=== PATIENT | male | born 1970 | race Caucasian/White ===

== ENCOUNTER 2018-09-06 07:07 | Emergency (ER) | payer SELFPAY ==
[2018-09-06 07:42] LABS: Bilirubin Negative (Negative); Blood, Urine Small (Negative); Clarity TURBID (Clear); Glucose, Urine (Dipstick) >=1000 mg/dL (Negative); Leukocyte Large (Negative); Nitrite Negative (Negative); Protein, Urine (Dipstick) 30 mg/dL (Neg-Trace); Specific Gravity, Urine 1.014 (1.002-1.036); Urobilinogen 0.2 mg/dL (0.2-1.0); pH, Urine 6.5 (5.0-9.0)
[2018-09-06 07:45] LABS: Bacteria/HPF 1+ HPF (None Seen); Hyaline Casts/LPF 0-3 HYALINE CAST LPF (0-3 Hyaline); Pathc Cast-AUWi Flag 1.01 (0-2.49); Squamous Epithelial 0-3 HPF (0-3)
[2018-09-06 07:59] LABS: Yeast-All Forms None Seen HPF (None Seen)
[2018-09-06 08:05] LABS: #Eosinphils 0.2 thou/uL (0.0-0.7); #Monocytes 0.8 thou/uL (0.11-0.59); #Neutrophils 6.1 thou/uL (1.40-6.50); %Basophils 0.4 % (0.0-1.0); %Eosinophils 1.8 % (0.0-10.0); %Lymphocytes 21.8 % (21.0-51.0); %Monocytes 8.7 % (0.0-10.0); %Neutrophils 67.3 % (42.0-75.0); Hemoglobin 16.7 g/dL (14.0-18.0); Mean Corpuscular HGB CONC 32.8 g/dL (32.0-36.0); Mean Corpuscular Hemoglobin 31.5 pg (27.0-31.0); Mean Platelet Volume 8.3 fL (7.4-10.4); Platelet Count 171 thou/uL (130-400); RBC Distribution Width 12.9 % (11.5-14.5); Red Blood Cell (RBC) Count 5.29 mill/uL (4.70-6.10); White Blood Cell (WBC) Count 9.1 thou/uL (4.8-10.8)
[2018-09-06] MEDS ORDERED: cefTRIAXone\\ROCEPHIN 1 GM VIAL ONE (09:22)
[2018-09-06 10:11] LABS: ALT (SGPT) 25 U/L (8-55); AST (SGOT) 13 U/L (5-34); Albumin 3.9 g/dL (3.5-5.0); Alkaline Phosphatase 76 U/L (40-150); Anion Gap 12 mmol/L (10-20); BUN (Urea Nitrogen) 10 mg/dL (8.9-20.6); Bilirubin, Total 0.3 mg/dL (0.2-1.2); Calc. Creatinine Clearance 0 mL/min (70-130); Calcium 9.2 mg/dL (7.8-10.44); Carbon Dioxide 27 mmol/L (22-29); Chloride 105 mmol/L (98-107); Estimated GFR-MDRD Greater than 90; Globulin 2.8 g/dL (2.4-3.5); Glucose 206 mg/dL (70-105); Potassium 4.2 mmol/L (3.5-5.1); Protein, Total 6.7 g/dL (6.0-8.3); Sodium 140 mmol/L (136-145)
== END 2018-09-06 10:17 | disposition home or self-care (01) ==
LOC: ERS 07:07
DX: E11.65 Type 2 diabetes mellitus with hyperglycemia (principal); N39.0 Urinary tract infection, site not specified; R53.83 Other fatigue; E11.42 Type 2 diabetes mellitus with diabetic polyneuropathy; E11.39 Type 2 diabetes mellitus with other diabetic ophthalmic complication; E78.5 Hyperlipidemia, unspecified; F17.210 Nicotine dependence, cigarettes, uncomplicated; Z79.82 Long term (current) use of aspirin; Z79.84 Long term (current) use of oral hypoglycemic drugs
CPT/HCPCS: 36415; 36416; 80053; 81003; 81015; 84484; 85025; 87077; 87086; 87186; 93005; 96361; 96374; J0696

== ENCOUNTER 2019-01-14 09:33 | Emergency (ER) | payer SELFPAY ==
[2019-01-14 10:14] LABS: Bilirubin Negative (Negative); Blood, Urine Negative (Negative); Clarity CLEAR (Clear); Glucose, Urine (Dipstick) >=1000 mg/dL (Negative); Leukocyte Negative (Negative); Nitrite Negative (Negative); Protein, Urine (Dipstick) Negative (Neg-Trace); Urobilinogen 0.2 mg/dL (0.2-1.0)
[2019-01-14 10:37] LABS: #Eosinphils 0.2 thou/uL (0.0-0.7); #Lymphocytes 2.1 thou/uL (1.20-3.40); #Monocytes 0.8 thou/uL (0.11-0.59); %Basophils 0.1 % (0.0-1.0); %Eosinophils 3.3 % (0.0-10.0); %Lymphocytes 29.1 % (21.0-51.0); %Monocytes 10.9 % (0.0-10.0); %Neutrophils 56.7 % (42.0-75.0); Hemoglobin 15.4 g/dL (14.0-18.0); Mean Corpuscular HGB CONC 33.4 g/dL (32.0-36.0); Mean Corpuscular Hemoglobin 32.3 pg (27.0-31.0); Mean Corpuscular Volume 96.8 fL (78.0-98.0); Mean Platelet Volume 9.4 fL (7.4-10.4); Platelet Count 163 thou/uL (130-400); RBC Distribution Width 11.7 % (11.5-14.5); Red Blood Cell (RBC) Count 4.77 mill/uL (4.70-6.10); White Blood Cell (WBC) Count 7.1 thou/uL (4.8-10.8)
[2019-01-14 10:58] LABS: ALT (SGPT) 29 U/L (8-55); AST (SGOT) 14 U/L (5-34); Alkaline Phosphatase 80 U/L (40-150); Anion Gap 12 mmol/L (10-20); BUN (Urea Nitrogen) 13 mg/dL (8.9-20.6); Bilirubin, Total 0.4 mg/dL (0.2-1.2); Calc. Creatinine Clearance 0 mL/min (70-130); Calcium 9.4 mg/dL (7.8-10.44); Carbon Dioxide 26 mmol/L (22-29); Chloride 103 mmol/L (98-107); Estimated GFR-MDRD Greater than 90; Globulin 2.9 g/dL (2.4-3.5); Glucose 224 mg/dL (70-105); Lipase 30 U/L (8-78); Potassium 4.6 mmol/L (3.5-5.1); Protein, Total 6.9 g/dL (6.0-8.3); Sodium 136 mmol/L (136-145)
[2019-01-14] MEDS ORDERED: ISOVUE-370 76%-LOCM 1 ML ONE (11:43)
--- NOTE | 2019-01-14 13:00 | CT ---
CT Abdomen Pelvis W Con HISTORY: Left flank pain. History of kidney infection. Reports UTI type symptoms. COMPARISON: None. FINDINGS: The lung bases are clear. Partially calcified granuloma is seen in the left base. The liver shows fatty change, the spleen is within normal limits in size. The pancreas and gallbladde r regions appear unremarkable. Right and left adrenal glands are normal in appearance. Right and left kidneys are normal in size. Th ere is no obstruction. There are no renal calculi. There is no perinephric fat stranding. A retroaortic left renal vein is incidentally noted. No significant periaortic or mesenteric adenopathy. No bowel wall findings. CT of pelvis performed with contrast enhancement: The bladder is mildly distended. There is no eviden ce of adenopathy or mass. The appendix region appears unremarkable. Minimal arthritic changes of the spine seen. IMPRESSION: 1. No acute abnormalities abdomen or pelvis. 2. Fatty changes of the liver. 3. Mildly within the bladder.
== END 2019-01-14 14:50 | disposition home or self-care (01) ==
LOC: ERS 09:33
DX: R10.9 Unspecified abdominal pain (principal); E11.9 Type 2 diabetes mellitus without complications; F17.210 Nicotine dependence, cigarettes, uncomplicated
CPT/HCPCS: 36415; 74177; 80053; 81003; 83690; 85025; 87086; Q9966

== ENCOUNTER 2021-03-16 13:38 | Emergency (ER) | payer SELFPAY ==
[2021-03-16 19:58] LABS: SARS-CoV-2 PCR by NAA DETECTED (NotDetected)
== END 2021-03-16 14:25 | disposition home or self-care (01) ==
LOC: ERS 13:38
DX: U07.1 COVID-19 (principal); I10 Essential (primary) hypertension; E11.40 Type 2 diabetes mellitus with diabetic neuropathy, unspecified; E78.5 Hyperlipidemia, unspecified; F17.210 Nicotine dependence, cigarettes, uncomplicated
CPT/HCPCS: 99283; U0003; U0005

== ENCOUNTER 2021-04-06 09:40 | Emergency (ER) | payer SELFPAY ==
[2021-04-06] MEDS ORDERED: Ketorolac Tromethamine 30 MG/ML VIAL ONE (10:58)
== END 2021-04-06 11:28 | disposition home or self-care (01) ==
LOC: ERS 09:40
DX: M25.512 Pain in left shoulder (principal); Z79.899 Other long term (current) drug therapy; Z79.4 Long term (current) use of insulin; I10 Essential (primary) hypertension; E11.42 Type 2 diabetes mellitus with diabetic polyneuropathy; E78.5 Hyperlipidemia, unspecified; E78.00 Pure hypercholesterolemia, unspecified; F17.210 Nicotine dependence, cigarettes, uncomplicated
CPT/HCPCS: 93005; 96372; J1885

== ENCOUNTER 2021-04-10 11:25 | Inpatient (IN) | payer SELFPAY ==
[~2021-04-10 11:25] MED LIST: Heparin 1,000 UNITS/ML VIAL ONE
[2021-04-10] MEDS ORDERED: Morphine 4 MG/ML VIAL ONE ×2 (12:21→15:49)
[2021-04-10 15:20] LABS: ALT (SGPT) 15 U/L (8-55); AST (SGOT) 18 U/L (5-34); Albumin 3.3 g/dL (3.5-5.0); Alkaline Phosphatase 100 U/L (40-110); Anion Gap 15 mmol/L (10-20); BUN (Urea Nitrogen) 17 mg/dL (8.9-20.6); Bilirubin, Total 0.4 mg/dL (0.2-1.2); Calc. Creatinine Clearance 0 mL/min (70-130); Calcium 9.8 mg/dL (7.8-10.44); Carbon Dioxide 26 mmol/L (22-29); Chloride 99 mmol/L (98-107); Globulin 4.1 g/dL (2.4-3.5); Glucose 347 mg/dL (70-105); Potassium 4.5 mmol/L (3.5-5.1); Protein, Total 7.4 g/dL (6.0-8.3); Sodium 135 mmol/L (136-145)
[2021-04-10 15:21] LABS: #Eosinphils 0.1 thou/uL (0.0-0.7); #Lymphocytes 1.6 thou/uL (1.20-3.40); #Monocytes 1.3 thou/uL (0.11-0.59); %Basophils 0.1 % (0.0-1.0); %Eosinophils 0.6 % (0.0-10.0); %Lymphocytes 13.7 % (21.0-51.0); %Monocytes 10.9 % (0.0-10.0); %Neutrophils 74.7 % (42.0-75.0); Hemoglobin 15.1 g/dL (14.0-18.0); Mean Corpuscular HGB CONC 32.6 g/dL (32.0-36.0); Mean Corpuscular Hemoglobin 31.6 pg (27.0-31.0); Mean Corpuscular Volume 96.9 fL (78.0-98.0); Platelet Count 191 thou/uL (130-400); Red Blood Cell (RBC) Count 4.78 mill/uL (4.70-6.10)
[2021-04-10] MEDS ORDERED: Cefepime 2 GM VIAL ONE (15:27)
[2021-04-10 16:17] LABS: #Eosinphils 0.1 thou/uL (0.0-0.7); #Lymphocytes 1.2 thou/uL (1.20-3.40); #Monocytes 1.6 thou/uL (0.11-0.59); #Neutrophils 10.4 thou/uL (1.40-6.50); %Basophils 0.2 % (0.0-1.0); %Eosinophils 0.7 % (0.0-10.0); %Monocytes 12.1 % (0.0-10.0); Hemoglobin 15.3 g/dL (14.0-18.0); Mean Corpuscular HGB CONC 31.7 g/dL (32.0-36.0); Mean Corpuscular Hemoglobin 30.8 pg (27.0-31.0); Mean Corpuscular Volume 97.4 fL (78.0-98.0); Mean Platelet Volume 9.4 fL (7.4-10.4); Platelet Count 201 thou/uL (130-400); RBC Distribution Width 11.9 % (11.5-14.5); Red Blood Cell (RBC) Count 4.97 mill/uL (4.70-6.10); White Blood Cell (WBC) Count 13.3 thou/uL (4.8-10.8)
[2021-04-10] MEDS ORDERED: Ondansetron ODT 4 MG TAB PO PRN (16:30)
[2021-04-10] MEDS ORDERED: Acetaminophen 650 MG Suppository PR PRN (16:30)
[2021-04-10] MEDS ORDERED: Ondansetron PF 4 MG/2 ML Vial IVP PRN (16:30)
[2021-04-10] MEDS ORDERED: Enoxaparin Sodium 40 MG/0.4 ML SYRINGE SC SCH (16:30)
[2021-04-10 16:42] LABS: ALT (SGPT) 17 U/L (8-55); AST (SGOT) 19 U/L (5-34); Albumin 3.5 g/dL (3.5-5.0); Alkaline Phosphatase 96 U/L (40-110); Anion Gap 16 mmol/L (10-20); BUN (Urea Nitrogen) 16 mg/dL (8.9-20.6); Bilirubin, Total 0.5 mg/dL (0.2-1.2); Calc. Creatinine Clearance 0 mL/min (70-130); Calcium 9.1 mg/dL (7.8-10.44); Carbon Dioxide 24 mmol/L (22-29); Chloride 101 mmol/L (98-107); Globulin 3.4 g/dL (2.4-3.5); Glucose 269 mg/dL (70-105); Potassium 4.7 mmol/L (3.5-5.1); Protein, Total 6.9 g/dL (6.0-8.3); Sodium 136 mmol/L (136-145)
[2021-04-10] MEDS ORDERED: Insulin Regular 300 UNITS/3 ML VIAL SC PRN (16:43)
[2021-04-10] MEDS ORDERED: Dextrose 50% Abboject 50 ML SYRINGE SLOW IVP PRN (16:43)
[2021-04-10] MEDS ORDERED: Dextrose 5% in Water 1,000 ML IV PRN (16:43)
[2021-04-10] MEDS ORDERED: VANCOMYCIN 2 GRAM/400 ML BAG 2 GM in Premix Bag 1 BAG IVPB SCH (17:30)
[2021-04-10] MEDS: HYDROcodone/Acetaminophen 5/325 mg Tablet PO PRN ×2 (18:14→22:30)
[2021-04-10] MEDS ORDERED: cefTRIAXone\\ROCEPHIN 1 GM in Sodium Chloride 0.9% 100 ML IVPB SCH (20:00)
[2021-04-10] MEDS: Acetaminophen 325 MG TAB PO PRN (21:07)
[2021-04-10 21:18] VITALS: BMI 34.2
[2021-04-10] MEDS ORDERED: Lisinopril 5 MG TAB PO SCH (22:30)
[2021-04-10] MEDS ORDERED: Lantus 1000 UNITS/10 ML VIAL SC SCH (22:30)
[2021-04-11] MEDS: HYDROcodone/Acetaminophen 5/325 mg Tablet PO PRN ×4 (05:10→20:52)
[2021-04-11] MEDS: Insulin Regular 300 UNITS/3 ML VIAL SC PRN ×3 (05:11→17:19)
[2021-04-11 06:51] LABS: #Eosinphils 0.1 thou/uL (0.0-0.7); #Lymphocytes 1.5 thou/uL (1.20-3.40); #Monocytes 1.7 thou/uL (0.11-0.59); #Neutrophils 10.1 thou/uL (1.40-6.50); %Eosinophils 0.7 % (0.0-10.0); %Monocytes 12.6 % (0.0-10.0); %Neutrophils 75.7 % (42.0-75.0); Hemoglobin 13.3 g/dL (14.0-18.0); Mean Corpuscular HGB CONC 29.2 g/dL (32.0-36.0); Mean Corpuscular Hemoglobin 28.5 pg (27.0-31.0); Mean Corpuscular Volume 97.7 fL (78.0-98.0); Mean Platelet Volume 9.2 fL (7.4-10.4); Platelet Count 205 thou/uL (130-400); RBC Distribution Width 11.8 % (11.5-14.5); Red Blood Cell (RBC) Count 4.67 mill/uL (4.70-6.10); White Blood Cell (WBC) Count 13.3 thou/uL (4.8-10.8)
[2021-04-11 07:10] LABS: Anion Gap 13 mmol/L (10-20); BUN (Urea Nitrogen) 12 mg/dL (8.9-20.6); Calc. Creatinine Clearance 245 mL/min (70-130); Calcium 8.5 mg/dL (7.8-10.44); Carbon Dioxide 26 mmol/L (22-29); Chloride 100 mmol/L (98-107); Glucose 247 mg/dL (70-105); Potassium 4.4 mmol/L (3.5-5.1); Sodium 135 mmol/L (136-145)
[2021-04-11] MEDS ORDERED: Naproxen 500 MG TAB PO SCH (09:00)
[2021-04-11] MEDS: Enoxaparin Sodium 40 MG/0.4 ML SYRINGE SC SCH (09:06)
[2021-04-11] MEDS: Lisinopril 5 MG TAB PO SCH (09:07)
[2021-04-11] MEDS: Lantus 1000 UNITS/10 ML VIAL SC SCH ×2 (09:08→20:53)
[2021-04-11] MEDS ORDERED: Polyethylene Glycol 3350 17 GM Packet PO PRN (11:22)
[2021-04-11] MEDS ORDERED: Piperacillin/Tazobactam 3.375 GM in Sodium Chloride 0.9% 100 ML IVPB SCH ×2 (11:30→11:45)
[2021-04-11] MEDS: Vancomycin 1.5 GRAM/300 ML BAG 1.5 GM in Premix Bag 1 BAG IVPB SCH (13:26)
[2021-04-11] MEDS ORDERED: metFORMIN 850 MG TAB PO SCH ×2 (15:00→20:45)
[2021-04-11] MEDS ORDERED: Dextrose 50% Abboject 50 ML SYRINGE SLOW IVP PRN ×2 (16:31→21:00)
[2021-04-11] MEDS ORDERED: Dextrose 5% in Water 1,000 ML IV PRN ×2 (16:31→21:00)
[2021-04-11] MEDS: Piperacillin/Tazobactam 3.375 GM in Sodium Chloride 0.9% 100 ML IVPB SCH (17:20)
[2021-04-11] MEDS: Senokot S 8.6-50 MG TAB PO SCH (20:54)
[2021-04-11] MEDS ORDERED: HumaLOG 300 UNITS/3 ML VIAL SC PRN (21:00)
[2021-04-11] MEDS: HumaLOG 300 UNITS/3 ML VIAL SC PRN (21:39)
[2021-04-11] MEDS: Morphine 2 MG/ML VIAL SLOW IVP PRN (21:42)
[2021-04-12] MEDS: HYDROcodone/Acetaminophen 5/325 mg Tablet PO PRN ×5 (00:43→22:58)
[2021-04-12] MEDS: Vancomycin 1.5 GRAM/300 ML BAG 1.5 GM in Premix Bag 1 BAG IVPB SCH ×2 (00:43→14:48)
[2021-04-12] MEDS: Piperacillin/Tazobactam 3.375 GM in Sodium Chloride 0.9% 100 ML IVPB SCH ×3 (00:44→18:45)
[2021-04-12] MEDS: Morphine 2 MG/ML VIAL SLOW IVP PRN (03:30)
[2021-04-12] MEDS: Insulin Regular 300 UNITS/3 ML VIAL SC PRN ×2 (05:29→17:56)
[2021-04-12 07:24] LABS: #Eosinphils 0.2 thou/uL (0.0-0.7); #Lymphocytes 1.4 thou/uL (1.20-3.40); #Monocytes 1.3 thou/uL (0.11-0.59); %Basophils 0.3 % (0.0-1.0); %Eosinophils 1.3 % (0.0-10.0); %Lymphocytes 11.5 % (21.0-51.0); %Monocytes 11.3 % (0.0-10.0); %Neutrophils 75.7 % (42.0-75.0); Hemoglobin 13.2 g/dL (14.0-18.0); Mean Corpuscular HGB CONC 31.5 g/dL (32.0-36.0); Mean Corpuscular Hemoglobin 30.8 pg (27.0-31.0); Mean Corpuscular Volume 97.8 fL (78.0-98.0); Platelet Count 209 thou/uL (130-400); RBC Distribution Width 11.8 % (11.5-14.5); Red Blood Cell (RBC) Count 4.28 mill/uL (4.70-6.10); White Blood Cell (WBC) Count 11.8 thou/uL (4.8-10.8)
[2021-04-12 07:28] LABS: Hemoglobin A1c 11.7 % (4.0-6.0)
[2021-04-12 07:38] LABS: Anion Gap 11 mmol/L (10-20); BUN (Urea Nitrogen) 10 mg/dL (8.9-20.6); Calc. Creatinine Clearance 238 mL/min (70-130); Calcium 8.1 mg/dL (7.8-10.44); Carbon Dioxide 28 mmol/L (22-29); Chloride 98 mmol/L (98-107); Glucose 261 mg/dL (70-105); Potassium 4.3 mmol/L (3.5-5.1); Sodium 133 mmol/L (136-145)
[2021-04-12] MEDS: glipiZIDE 10 MG TAB PO SCH (08:12)
[2021-04-12] MEDS: Senokot S 8.6-50 MG TAB PO SCH ×2 (08:12→20:29)
[2021-04-12] MEDS: Lisinopril 5 MG TAB PO SCH (08:12)
[2021-04-12] MEDS: Enoxaparin Sodium 40 MG/0.4 ML SYRINGE SC SCH (08:13)
[2021-04-12] MEDS: Lantus 1000 UNITS/10 ML VIAL SC SCH ×2 (08:15→20:29)
[2021-04-12] MEDS: metFORMIN 850 MG TAB PO SCH ×3 (08:16→18:44)
[2021-04-12] MEDS ORDERED: Iopamidol-370 76% 500 ML 1 ML ONE (09:31)
[2021-04-12] MEDS ORDERED: Ketorolac Tromethamine 30 MG/ML VIAL IVP SCH (10:30)
[2021-04-12] MEDS ORDERED: Vancomycin 1.5 GRAM/300 ML BAG 1.5 GM in Premix Bag 1 BAG IVPB SCH (14:00)
[2021-04-12] MEDS: Clindamycin/D5W 900 MG in Premix Bag 1 BAG IVPB SCH (17:37)
[2021-04-12] MEDS: Acetaminophen 325 MG TAB PO PRN (20:28)
[2021-04-12] MEDS: HumaLOG 300 UNITS/3 ML VIAL SC PRN (20:32)
[2021-04-13] MEDS: Clindamycin/D5W 900 MG in Premix Bag 1 BAG IVPB SCH ×3 (01:24→16:10)
[2021-04-13] MEDS: Piperacillin/Tazobactam 3.375 GM in Sodium Chloride 0.9% 100 ML IVPB SCH ×3 (01:24→16:10)
[2021-04-13] MEDS: Morphine 2 MG/ML VIAL SLOW IVP PRN ×3 (01:26→23:08)
[2021-04-13] MEDS: Insulin Regular 300 UNITS/3 ML VIAL SC PRN ×3 (05:19→16:09)
[2021-04-13] MEDS: HYDROcodone/Acetaminophen 5/325 mg Tablet PO PRN ×3 (05:19→21:32)
[2021-04-13 06:58] LABS: #Eosinphils 0.1 thou/uL (0.0-0.7); #Lymphocytes 1.2 thou/uL (1.20-3.40); #Monocytes 1.1 thou/uL (0.11-0.59); #Neutrophils 9.3 thou/uL (1.40-6.50); %Basophils 0.1 % (0.0-1.0); %Eosinophils 1.2 % (0.0-10.0); %Lymphocytes 10.4 % (21.0-51.0); %Monocytes 9.5 % (0.0-10.0); %Neutrophils 78.7 % (42.0-75.0); Hemoglobin 13.6 g/dL (14.0-18.0); Mean Corpuscular HGB CONC 30.9 g/dL (32.0-36.0); Mean Corpuscular Hemoglobin 30.3 pg (27.0-31.0); Mean Corpuscular Volume 98.2 fL (78.0-98.0); Mean Platelet Volume 9.4 fL (7.4-10.4); Platelet Count 208 thou/uL (130-400); RBC Distribution Width 11.9 % (11.5-14.5); Red Blood Cell (RBC) Count 4.47 mill/uL (4.70-6.10); White Blood Cell (WBC) Count 11.8 thou/uL (4.8-10.8)
[2021-04-13 07:10] LABS: Anion Gap 12 mmol/L (10-20); BUN (Urea Nitrogen) 12 mg/dL (8.9-20.6); Calc. Creatinine Clearance 234 mL/min (70-130); Calcium 8.3 mg/dL (7.8-10.44); Carbon Dioxide 28 mmol/L (22-29); Chloride 100 mmol/L (98-107); Glucose 309 mg/dL (70-105); Potassium 4.5 mmol/L (3.5-5.1); Sodium 135 mmol/L (136-145)
[2021-04-13] MEDS: Lisinopril 5 MG TAB PO SCH (08:43)
[2021-04-13] MEDS: metFORMIN 850 MG TAB PO SCH ×3 (08:43→16:08)
[2021-04-13] MEDS: Senokot S 8.6-50 MG TAB PO SCH ×2 (08:43→21:33)
[2021-04-13] MEDS: glipiZIDE 10 MG TAB PO SCH (08:43)
[2021-04-13] MEDS: Lantus 1000 UNITS/10 ML VIAL SC SCH ×2 (08:44→21:33)
[2021-04-13] MEDS: Enoxaparin Sodium 40 MG/0.4 ML SYRINGE SC SCH (08:44)
[2021-04-13] MEDS ORDERED: Dextrose 5% in Water 1,000 ML IV PRN (10:21)
[2021-04-13] MEDS ORDERED: Dextrose 50% Abboject 50 ML SYRINGE SLOW IVP PRN (10:21)
[2021-04-13] MEDS ORDERED: Lidocaine 1% (PF) 30 ML VIAL ONE (13:19)
[2021-04-13] MEDS ORDERED: Furosemide 100 MG/10 ML VIAL SLOW IVP SCH (16:15)
[2021-04-14] MEDS: Clindamycin/D5W 900 MG in Premix Bag 1 BAG IVPB SCH ×3 (00:36→17:07)
[2021-04-14] MEDS: Piperacillin/Tazobactam 3.375 GM in Sodium Chloride 0.9% 100 ML IVPB SCH ×3 (00:39→17:07)
[2021-04-14] MEDS: HYDROcodone/Acetaminophen 5/325 mg Tablet PO PRN (03:11)
[2021-04-14 06:55] LABS: #Eosinphils 0.2 thou/uL (0.0-0.7); #Lymphocytes 1.5 thou/uL (1.20-3.40); #Monocytes 1.6 thou/uL (0.11-0.59); #Neutrophils 11.1 thou/uL (1.40-6.50); %Eosinophils 1.2 % (0.0-10.0); %Lymphocytes 10.7 % (21.0-51.0); %Neutrophils 77.1 % (42.0-75.0); Hemoglobin 13.9 g/dL (14.0-18.0); Mean Corpuscular HGB CONC 31.9 g/dL (32.0-36.0); Mean Corpuscular Hemoglobin 31.2 pg (27.0-31.0); Mean Corpuscular Volume 97.8 fL (78.0-98.0); Mean Platelet Volume 8.7 fL (7.4-10.4); Platelet Count 271 thou/uL (130-400); RBC Distribution Width 11.8 % (11.5-14.5); Red Blood Cell (RBC) Count 4.46 mill/uL (4.70-6.10); White Blood Cell (WBC) Count 14.4 thou/uL (4.8-10.8)
[2021-04-14 07:15] LABS: Anion Gap 14 mmol/L (10-20); BUN (Urea Nitrogen) 11 mg/dL (8.9-20.6); Calc. Creatinine Clearance 221 mL/min (70-130); Calcium 8.7 mg/dL (7.8-10.44); Carbon Dioxide 30 mmol/L (22-29); Chloride 97 mmol/L (98-107); Glucose 273 mg/dL (70-105); Potassium 4.8 mmol/L (3.5-5.1); Sodium 136 mmol/L (136-145)
[2021-04-14] MEDS ORDERED: Penicillin G Potassium 5 MILL.UNITS in Sodium Chloride 0.9% 100 ML IVPB SCH (08:00)
[2021-04-14] MEDS: metFORMIN 850 MG TAB PO SCH ×3 (08:59→17:08)
[2021-04-14] MEDS: Senokot S 8.6-50 MG TAB PO SCH ×2 (08:59→21:10)
[2021-04-14] MEDS: Lisinopril 5 MG TAB PO SCH (08:59)
[2021-04-14] MEDS: glipiZIDE 10 MG TAB PO SCH (08:59)
[2021-04-14] MEDS: HYDROcodone/Acetaminophen 10/325 mg Tablet PO PRN ×3 (09:00→20:31)
[2021-04-14] MEDS: Lantus 1000 UNITS/10 ML VIAL SC SCH ×2 (09:01→20:37)
[2021-04-14] MEDS: Enoxaparin Sodium 40 MG/0.4 ML SYRINGE SC SCH (10:07)
[2021-04-14] MEDS: Insulin Regular 300 UNITS/3 ML VIAL SC PRN ×2 (11:22→17:08)
[2021-04-14] MEDS: Penicillin G Potassium 5 MILL.UNITS in Sodium Chloride 0.9% 100 ML IVPB SCH ×4 (15:42→23:24)
[2021-04-14] MEDS: Morphine 2 MG/ML VIAL SLOW IVP PRN (22:52)
[2021-04-15] MEDS: Clindamycin/D5W 900 MG in Premix Bag 1 BAG IVPB SCH ×2 (00:26→08:37)
[2021-04-15] MEDS: Penicillin G Potassium 5 MILL.UNITS in Sodium Chloride 0.9% 100 ML IVPB SCH ×6 (01:43→23:27)
[2021-04-15] MEDS: Piperacillin/Tazobactam 3.375 GM in Sodium Chloride 0.9% 100 ML IVPB SCH ×3 (02:45→17:27)
[2021-04-15] MEDS: Insulin Regular 300 UNITS/3 ML VIAL SC PRN ×3 (05:30→17:26)
[2021-04-15 07:15] LABS: #Eosinphils 0.1 thou/uL (0.0-0.7); #Lymphocytes 1.4 thou/uL (1.20-3.40); #Monocytes 1.2 thou/uL (0.11-0.59); #Neutrophils 10.5 thou/uL (1.40-6.50); %Eosinophils 0.8 % (0.0-10.0); %Lymphocytes 10.9 % (21.0-51.0); %Monocytes 8.7 % (0.0-10.0); %Neutrophils 79.6 % (42.0-75.0); Hemoglobin 13.1 g/dL (14.0-18.0); Mean Corpuscular HGB CONC 31.7 g/dL (32.0-36.0); Mean Corpuscular Hemoglobin 30.7 pg (27.0-31.0); Mean Corpuscular Volume 96.9 fL (78.0-98.0); Mean Platelet Volume 8.4 fL (7.4-10.4); Platelet Count 282 thou/uL (130-400); RBC Distribution Width 11.9 % (11.5-14.5); Red Blood Cell (RBC) Count 4.26 mill/uL (4.70-6.10); White Blood Cell (WBC) Count 13.2 thou/uL (4.8-10.8)
[2021-04-15] MEDS: HYDROcodone/Acetaminophen 10/325 mg Tablet PO PRN ×3 (07:18→23:25)
[2021-04-15 07:34] LABS: Anion Gap 14 mmol/L (10-20); BUN (Urea Nitrogen) 9 mg/dL (8.9-20.6); Calc. Creatinine Clearance 276 mL/min (70-130); Calcium 8.2 mg/dL (7.8-10.44); Carbon Dioxide 26 mmol/L (22-29); Chloride 100 mmol/L (98-107); Glucose 237 mg/dL (70-105); Potassium 4.6 mmol/L (3.5-5.1); Sodium 135 mmol/L (136-145)
[2021-04-15] MEDS: glipiZIDE 10 MG TAB PO SCH (08:34)
[2021-04-15] MEDS: Lisinopril 5 MG TAB PO SCH (08:34)
[2021-04-15] MEDS: Senokot S 8.6-50 MG TAB PO SCH ×2 (08:34→20:21)
[2021-04-15] MEDS: metFORMIN 850 MG TAB PO SCH ×3 (08:36→17:21)
[2021-04-15] MEDS: Lantus 1000 UNITS/10 ML VIAL SC SCH ×2 (08:38→20:21)
[2021-04-15] MEDS: Enoxaparin Sodium 40 MG/0.4 ML SYRINGE SC SCH (08:38)
[2021-04-15] MEDS ORDERED: Iopamidol-370 76% 500 ML 1 ML ONE (09:39)
[2021-04-15] MEDS: Morphine 2 MG/ML VIAL SLOW IVP PRN ×2 (13:56→20:21)
[2021-04-16] MEDS: Piperacillin/Tazobactam 3.375 GM in Sodium Chloride 0.9% 100 ML IVPB SCH ×2 (01:14→08:22)
[2021-04-16] MEDS: Penicillin G Potassium 5 MILL.UNITS in Sodium Chloride 0.9% 100 ML IVPB SCH ×2 (04:24→08:17)
[2021-04-16] MEDS: HYDROcodone/Acetaminophen 10/325 mg Tablet PO PRN (04:24)
[2021-04-16] MEDS: Morphine 2 MG/ML VIAL SLOW IVP PRN (04:25)
[2021-04-16] MEDS: metFORMIN 850 MG TAB PO SCH ×3 (07:57→17:00)
[2021-04-16] MEDS: Lantus 1000 UNITS/10 ML VIAL SC SCH ×2 (07:58→20:09)
[2021-04-16] MEDS: Senokot S 8.6-50 MG TAB PO SCH ×2 (07:58→20:09)
[2021-04-16] MEDS: Enoxaparin Sodium 40 MG/0.4 ML SYRINGE SC SCH (07:58)
[2021-04-16] MEDS: glipiZIDE 10 MG TAB PO SCH (07:58)
[2021-04-16] MEDS: Lisinopril 5 MG TAB PO SCH (08:16)
[2021-04-16] MEDS ORDERED: Vancomycin HCl 1.25 GM in Sodium Chloride 0.9% 250 ML 250 ML IVPB SCH (09:00)
[2021-04-16] MEDS: VANCOMYCIN 1.75 GM/350 ML BAG 1.75 GM in Premix Bag 1 BAG IVPB SCH ×2 (11:32→19:06)
[2021-04-16] MEDS ORDERED: Fentanyl 100 MCG/2 ML VIAL ONE ×4 (13:56→17:58)
[2021-04-16] MEDS ORDERED: Midazolam HCl 2 mg/2 ml Vial ONE (15:43)
[2021-04-16] MEDS ORDERED: Clindamycin/D5W 900 mg/50 ml Premix Bag ONE (15:52)
[2021-04-16] MEDS ORDERED: Rocuronium Bromide 10 MG/ML (10ML VIAL) ONE (16:04)
[2021-04-16] MEDS ORDERED: Lidocaine 1% PF 5 ML VIAL ONE (16:04)
[2021-04-16] MEDS ORDERED: PROPOFOL 200 MG/20 ML VIAL ONE (16:04)
[2021-04-16] MEDS ORDERED: Ondansetron PF 4 MG/2 ML Vial ONE (16:04)
[2021-04-16] MEDS ORDERED: Ondansetron HCl/PF 4 MG/2 ML Vial IVP PRN (17:28)
[2021-04-16] MEDS ORDERED: Promethazine HCl 25 MG/ML VIAL IM PRN ×2 (17:28→17:29)
[2021-04-16] MEDS ORDERED: HYDROmorphone 2 MG/ML VIAL SLOW IVP PRN (17:28)
[2021-04-16] MEDS ORDERED: Promethazine HCl 25 MG/ML VIAL IVPB PRN (17:28)
[2021-04-16] MEDS ORDERED: Naloxone HCl 0.4 mg/ml Vial IV PRN (17:29)
[2021-04-16] MEDS ORDERED: Zolpidem Tartrate 5 MG TAB PO PRN (17:29)
[2021-04-16] MEDS ORDERED: diphenhydrAMINE 25 MG CAP PO PRN (17:29)
[2021-04-16] MEDS ORDERED: diphenhydrAMINE 50 MG/ML VIAL IVP PRN (17:29)
[2021-04-16] MEDS ORDERED: Ondansetron PF 4 MG/2 ML Vial IVP PRN (17:29)
[2021-04-16] MEDS ORDERED: diphenhydrAMINE 50 MG/ML VIAL IM PRN (17:29)
[2021-04-16] MEDS ORDERED: Ketorolac Tromethamine 30 MG/ML VIAL IVP PRN (17:29)
[2021-04-16] MEDS ORDERED: fentaNYL Citrate/PF 2,000 MCG in Sodium Chloride 0.9% 60 ML IV PRN (17:29)
[2021-04-16] MEDS ORDERED: Communication Order-Pharmacy FS SCH (17:30)
[2021-04-16] MEDS ORDERED: HYDROmorphone 0.5 MG/0.5 ML SYRINGE ONE ×2 (17:34→17:46)
[2021-04-16] MEDS ORDERED: Promethazine HCl 25 MG/ML VIAL ONE (18:04)
[2021-04-16] MEDS: Cefepime 1 GM in Sodium Chloride 0.9% 100 ML IVPB SCH ×2 (18:51→21:35)
[2021-04-16] MEDS: Clindamycin/D5W 900 MG in Premix Bag 1 BAG IVPB SCH ×2 (18:51→21:35)
[2021-04-17] MEDS: VANCOMYCIN 1.75 GM/350 ML BAG 1.75 GM in Premix Bag 1 BAG IVPB SCH ×2 (02:13→12:02)
[2021-04-17] MEDS: Clindamycin/D5W 900 MG in Premix Bag 1 BAG IVPB SCH ×3 (04:57→22:30)
[2021-04-17] MEDS: Cefepime 1 GM in Sodium Chloride 0.9% 100 ML IVPB SCH ×3 (04:59→22:30)
[2021-04-17] MEDS: Insulin Regular 300 UNITS/3 ML VIAL SC PRN ×3 (05:09→17:23)
[2021-04-17] MEDS: metFORMIN 850 MG TAB PO SCH ×3 (08:11→17:22)
[2021-04-17] MEDS: glipiZIDE 10 MG TAB PO SCH (08:12)
[2021-04-17] MEDS: Senokot S 8.6-50 MG TAB PO SCH ×2 (08:12→20:35)
[2021-04-17] MEDS: Lantus 1000 UNITS/10 ML VIAL SC SCH ×2 (08:12→20:35)
[2021-04-17] MEDS: Enoxaparin Sodium 40 MG/0.4 ML SYRINGE SC SCH (08:12)
[2021-04-17] MEDS: Lisinopril 5 MG TAB PO SCH (08:14)
[2021-04-17] MEDS ORDERED: ceFAZolin Sodium/D5W 2 GM in Premix Bag 1 BAG IVPB SCH (09:45)
[2021-04-17] MEDS ORDERED: HYDROcodone/Acetaminophen 10/325 mg Tablet PO PRN (12:17)
[2021-04-17] MEDS: VANCOMYCIN 2 GRAM/400 ML BAG 2 GM in Premix Bag 1 BAG IVPB SCH ×2 (12:17→20:34)
[2021-04-17] MEDS ORDERED: Fentanyl 100 MCG/2 ML VIAL SLOW IVP PRN (12:17)
[2021-04-17] MEDS: HYDROcodone/Acetaminophen 10/325 mg Tablet PO PRN (19:48)
[2021-04-18] MEDS: VANCOMYCIN 2 GRAM/400 ML BAG 2 GM in Premix Bag 1 BAG IVPB SCH ×4 (04:45→20:26)
[2021-04-18] MEDS: Cefepime 1 GM in Sodium Chloride 0.9% 100 ML IVPB SCH ×3 (05:17→21:09)
[2021-04-18] MEDS: Clindamycin/D5W 900 MG in Premix Bag 1 BAG IVPB SCH ×3 (05:17→21:09)
[2021-04-18] MEDS: HYDROcodone/Acetaminophen 10/325 mg Tablet PO PRN ×3 (05:18→20:26)
[2021-04-18] MEDS ORDERED: Neomycin-Polymyxin 1 ML AMP ONE ×3 (07:30→08:43)
[2021-04-18] MEDS ORDERED: Midazolam HCl 2 mg/2 ml Vial ONE (07:56)
[2021-04-18] MEDS ORDERED: Phenylephrine 10 MG/ML VIAL ONE (07:58)
[2021-04-18] MEDS ORDERED: Fentanyl 250 MCG/5 ML VIAL ONE (07:58)
[2021-04-18] MEDS: metFORMIN 850 MG TAB PO SCH ×3 (08:00→16:42)
[2021-04-18] MEDS ORDERED: Ketorolac Tromethamine 30 MG/ML VIAL ONE (08:19)
[2021-04-18] MEDS ORDERED: Lidocaine 1% PF 5 ML VIAL ONE (08:19)
[2021-04-18] MEDS ORDERED: Ondansetron PF 4 MG/2 ML Vial ONE (08:19)
[2021-04-18] MEDS ORDERED: PROPOFOL 200 MG/20 ML VIAL ONE (08:19)
[2021-04-18] MEDS: Enoxaparin Sodium 40 MG/0.4 ML SYRINGE SC SCH (09:00)
[2021-04-18] MEDS ORDERED: Promethazine HCl 25 MG/ML VIAL IM PRN (09:23)
[2021-04-18] MEDS ORDERED: HYDROmorphone 2 MG/ML VIAL SLOW IVP PRN (09:23)
[2021-04-18] MEDS ORDERED: Ondansetron HCl/PF 4 MG/2 ML Vial IVP PRN (09:23)
[2021-04-18] MEDS ORDERED: Meperidine HCl/PF 25 MG/ML VIAL SLOW IVP PRN (09:23)
[2021-04-18] MEDS ORDERED: Promethazine HCl 25 MG/ML VIAL IVPB PRN (09:23)
[2021-04-18] MEDS ORDERED: Fentanyl 100 MCG/2 ML VIAL ONE (09:29)
[2021-04-18] MEDS: Lisinopril 5 MG TAB PO SCH (11:42)
[2021-04-18] MEDS: glipiZIDE 10 MG TAB PO SCH (11:42)
[2021-04-18] MEDS: Senokot S 8.6-50 MG TAB PO SCH ×2 (11:45→20:27)
[2021-04-18] MEDS: Lantus 1000 UNITS/10 ML VIAL SC SCH ×2 (11:45→20:34)
[2021-04-18] MEDS: Insulin Regular 300 UNITS/3 ML VIAL SC PRN ×2 (11:47→16:41)
[2021-04-18 12:56] LABS: #Eosinphils 0.1 thou/uL (0.0-0.7); #Lymphocytes 0.9 thou/uL (1.20-3.40); #Monocytes 0.5 thou/uL (0.11-0.59); #Neutrophils 12.5 thou/uL (1.40-6.50); %Eosinophils 0.5 % (0.0-10.0); %Lymphocytes 6.6 % (21.0-51.0); %Monocytes 3.4 % (0.0-10.0); %Neutrophils 89.4 % (42.0-75.0); Hemoglobin 11.8 g/dL (14.0-18.0); Mean Corpuscular HGB CONC 30.9 g/dL (32.0-36.0); Mean Corpuscular Hemoglobin 29.8 pg (27.0-31.0); Mean Corpuscular Volume 96.7 fL (78.0-98.0); Mean Platelet Volume 8.4 fL (7.4-10.4); Platelet Count 330 thou/uL (130-400); RBC Distribution Width 12.1 % (11.5-14.5); Red Blood Cell (RBC) Count 3.96 mill/uL (4.70-6.10)
[2021-04-18 13:14] LABS: Vancomycin, Trough 6.3 ug/mL
[2021-04-18 13:16] LABS: Anion Gap 11 mmol/L (10-20); BUN (Urea Nitrogen) 10 mg/dL (8.9-20.6); Calc. Creatinine Clearance 228 mL/min (70-130); Calcium 8.1 mg/dL (7.8-10.44); Carbon Dioxide 29 mmol/L (22-29); Chloride 99 mmol/L (98-107); Glucose 358 mg/dL (70-105); Potassium 4.6 mmol/L (3.5-5.1); Sodium 134 mmol/L (136-145)
[2021-04-18] MEDS: traMADol HCl 50 MG TAB PO PRN (23:26)
[2021-04-19] MEDS: HYDROcodone/Acetaminophen 10/325 mg Tablet PO PRN ×5 (02:27→22:05)
[2021-04-19] MEDS: VANCOMYCIN 2 GRAM/400 ML BAG 2 GM in Premix Bag 1 BAG IVPB SCH ×2 (02:29→08:26)
[2021-04-19] MEDS: Cefepime 1 GM in Sodium Chloride 0.9% 100 ML IVPB SCH ×3 (05:09→22:06)
[2021-04-19] MEDS: Clindamycin/D5W 900 MG in Premix Bag 1 BAG IVPB SCH ×3 (05:10→22:06)
[2021-04-19 07:01] LABS: #Basophils 0.1 thou/uL (0.0-0.2); #Eosinphils 0.2 thou/uL (0.0-0.7); #Lymphocytes 2.9 thou/uL (1.20-3.40); #Monocytes 1.3 thou/uL (0.11-0.59); #Neutrophils 8.9 thou/uL (1.40-6.50); %Basophils 0.4 % (0.0-1.0); %Eosinophils 1.6 % (0.0-10.0); %Lymphocytes 21.7 % (21.0-51.0); %Monocytes 9.5 % (0.0-10.0); %Neutrophils 66.9 % (42.0-75.0); Hemoglobin 11.9 g/dL (14.0-18.0); Mean Corpuscular HGB CONC 31.2 g/dL (32.0-36.0); Mean Corpuscular Hemoglobin 30.4 pg (27.0-31.0); Mean Corpuscular Volume 97.5 fL (78.0-98.0); Mean Platelet Volume 8.2 fL (7.4-10.4); Platelet Count 342 thou/uL (130-400); RBC Distribution Width 11.8 % (11.5-14.5); White Blood Cell (WBC) Count 13.4 thou/uL (4.8-10.8)
[2021-04-19 07:21] LABS: Vancomycin, Trough 31.2 ug/mL
[2021-04-19] MEDS: Enoxaparin Sodium 40 MG/0.4 ML SYRINGE SC SCH (08:32)
[2021-04-19] MEDS: metFORMIN 850 MG TAB PO SCH ×3 (08:33→16:46)
[2021-04-19] MEDS: glipiZIDE 10 MG TAB PO SCH (08:33)
[2021-04-19] MEDS: Lisinopril 5 MG TAB PO SCH (08:33)
[2021-04-19] MEDS: Senokot S 8.6-50 MG TAB PO SCH ×3 (08:33→19:41)
[2021-04-19] MEDS: Lantus 1000 UNITS/10 ML VIAL SC SCH ×2 (08:33→19:42)
[2021-04-19] MEDS ORDERED: VANCOMYCIN 2 GRAM/400 ML BAG 2 GM in Premix Bag 1 BAG IVPB SCH (11:15)
[2021-04-19] MEDS: Insulin Regular 300 UNITS/3 ML VIAL SC PRN ×2 (11:40→16:48)
[2021-04-19] MEDS ORDERED: VANCOMYCIN HCL IVPB SCH (11:45)
[2021-04-19] MEDS: traMADol HCl 50 MG TAB PO PRN (19:38)
[2021-04-20] MEDS: Clindamycin/D5W 900 MG in Premix Bag 1 BAG IVPB SCH ×3 (05:30→21:58)
[2021-04-20] MEDS: Cefepime 1 GM in Sodium Chloride 0.9% 100 ML IVPB SCH ×3 (05:30→21:58)
[2021-04-20 07:25] LABS: #Eosinphils 0.2 thou/uL (0.0-0.7); #Lymphocytes 2.1 thou/uL (1.20-3.40); #Monocytes 0.8 thou/uL (0.11-0.59); #Neutrophils 7.9 thou/uL (1.40-6.50); %Eosinophils 1.8 % (0.0-10.0); %Lymphocytes 18.8 % (21.0-51.0); %Monocytes 7.3 % (0.0-10.0); Hemoglobin 12.1 g/dL (14.0-18.0); Mean Corpuscular HGB CONC 32.4 g/dL (32.0-36.0); Mean Corpuscular Hemoglobin 31.2 pg (27.0-31.0); Mean Corpuscular Volume 96.4 fL (78.0-98.0); Mean Platelet Volume 8.4 fL (7.4-10.4); Platelet Count 342 thou/uL (130-400); RBC Distribution Width 11.9 % (11.5-14.5); Red Blood Cell (RBC) Count 3.86 mill/uL (4.70-6.10); White Blood Cell (WBC) Count 10.9 thou/uL (4.8-10.8)
[2021-04-20 07:48] LABS: Vancomycin, Random 5.6 ug/mL (See Comment)
[2021-04-20] MEDS: Enoxaparin Sodium 40 MG/0.4 ML SYRINGE SC SCH (08:04)
[2021-04-20] MEDS: Lisinopril 5 MG TAB PO SCH (08:05)
[2021-04-20] MEDS: metFORMIN 850 MG TAB PO SCH ×3 (08:05→16:38)
[2021-04-20] MEDS: Senokot S 8.6-50 MG TAB PO SCH ×2 (08:05→19:32)
[2021-04-20] MEDS: glipiZIDE 10 MG TAB PO SCH (08:05)
[2021-04-20] MEDS: Lantus 1000 UNITS/10 ML VIAL SC SCH ×2 (08:05→19:32)
[2021-04-20] MEDS: HYDROcodone/Acetaminophen 10/325 mg Tablet PO PRN ×2 (11:36→18:07)
[2021-04-21] MEDS: HYDROcodone/Acetaminophen 10/325 mg Tablet PO PRN ×3 (00:08→22:18)
[2021-04-21] MEDS: Cefepime 1 GM in Sodium Chloride 0.9% 100 ML IVPB SCH ×2 (05:34→13:39)
[2021-04-21] MEDS: Clindamycin/D5W 900 MG in Premix Bag 1 BAG IVPB SCH ×2 (05:34→13:36)
[2021-04-21] MEDS: glipiZIDE 10 MG TAB PO SCH (08:07)
[2021-04-21] MEDS: Enoxaparin Sodium 40 MG/0.4 ML SYRINGE SC SCH (08:07)
[2021-04-21] MEDS: Senokot S 8.6-50 MG TAB PO SCH ×2 (08:07→20:15)
[2021-04-21] MEDS: metFORMIN 850 MG TAB PO SCH ×3 (08:07→17:01)
[2021-04-21] MEDS: Lisinopril 5 MG TAB PO SCH (08:07)
[2021-04-21] MEDS: Lantus 1000 UNITS/10 ML VIAL SC SCH ×2 (08:08→20:11)
[2021-04-21 13:40] LABS: #Eosinphils 0.1 thou/uL (0.0-0.7); #Lymphocytes 1.4 thou/uL (1.20-3.40); #Neutrophils 8.9 thou/uL (1.40-6.50); %Basophils 0.2 % (0.0-1.0); %Eosinophils 1.1 % (0.0-10.0); %Lymphocytes 12.1 % (21.0-51.0); %Monocytes 8.9 % (0.0-10.0); %Neutrophils 77.8 % (42.0-75.0); Hemoglobin 11.6 g/dL (14.0-18.0); Mean Corpuscular HGB CONC 33.4 g/dL (32.0-36.0); Platelet Count 375 thou/uL (130-400); RBC Distribution Width 11.8 % (11.5-14.5); Red Blood Cell (RBC) Count 3.61 mill/uL (4.70-6.10); White Blood Cell (WBC) Count 11.4 thou/uL (4.8-10.8)
[2021-04-21 14:21] LABS: Anion Gap 12 mmol/L (10-20); BUN (Urea Nitrogen) 9 mg/dL (8.9-20.6); Calc. Creatinine Clearance 242 mL/min (70-130); Calcium 8.3 mg/dL (7.8-10.44); Carbon Dioxide 28 mmol/L (22-29); Chloride 104 mmol/L (98-107); Glucose 183 mg/dL (70-105); Potassium 4.2 mmol/L (3.5-5.1); Sodium 140 mmol/L (136-145)
[2021-04-21] MEDS ORDERED: cefTRIAXone Sodium 2 MG in Syringe 0 ML IVPB SCH (15:00)
[2021-04-21] MEDS: cefTRIAXone\\ROCEPHIN 2 GM in Sodium Chloride 0.9% 100 ML IVPB SCH (15:46)
[2021-04-22 07:20] LABS: Anion Gap 11 mmol/L (10-20); BUN (Urea Nitrogen) 10 mg/dL (8.9-20.6); Calc. Creatinine Clearance 231 mL/min (70-130); Calcium 8.7 mg/dL (7.8-10.44); Carbon Dioxide 32 mmol/L (22-29); Chloride 100 mmol/L (98-107); Glucose 251 mg/dL (70-105); Potassium 4.8 mmol/L (3.5-5.1); Sodium 138 mmol/L (136-145)
[2021-04-22 07:27] LABS: #Eosinphils 0.2 thou/uL (0.0-0.7); #Lymphocytes 1.6 thou/uL (1.20-3.40); #Neutrophils 7.8 thou/uL (1.40-6.50); %Basophils 0.1 % (0.0-1.0); %Eosinophils 1.8 % (0.0-10.0); %Lymphocytes 15.1 % (21.0-51.0); %Monocytes 9.4 % (0.0-10.0); %Neutrophils 73.6 % (42.0-75.0); Hemoglobin 11.7 g/dL (14.0-18.0); Mean Corpuscular HGB CONC 32.9 g/dL (32.0-36.0); Mean Corpuscular Hemoglobin 31.6 pg (27.0-31.0); Mean Corpuscular Volume 96.1 fL (78.0-98.0); Mean Platelet Volume 8.4 fL (7.4-10.4); Platelet Count 384 thou/uL (130-400); RBC Distribution Width 12.1 % (11.5-14.5); Red Blood Cell (RBC) Count 3.69 mill/uL (4.70-6.10); White Blood Cell (WBC) Count 10.6 thou/uL (4.8-10.8)
[2021-04-22] MEDS: Enoxaparin Sodium 40 MG/0.4 ML SYRINGE SC SCH (08:49)
[2021-04-22] MEDS: Lisinopril 5 MG TAB PO SCH (08:49)
[2021-04-22] MEDS: metFORMIN 850 MG TAB PO SCH ×3 (08:49→16:24)
[2021-04-22] MEDS: Senokot S 8.6-50 MG TAB PO SCH (08:49)
[2021-04-22] MEDS: glipiZIDE 10 MG TAB PO SCH (08:49)
[2021-04-22] MEDS: HYDROcodone/Acetaminophen 10/325 mg Tablet PO PRN ×2 (08:51→15:07)
[2021-04-22] MEDS: Lantus 1000 UNITS/10 ML VIAL SC SCH (08:53)
[2021-04-22] MEDS: Insulin Regular 300 UNITS/3 ML VIAL SC PRN ×2 (11:42→16:32)
[2021-04-22] MEDS: cefTRIAXone\\ROCEPHIN 2 GM in Sodium Chloride 0.9% 100 ML IVPB SCH (15:00)
[2021-04-22 17:08] VITALS: BP 151/79; TEMP 98.2
== END 2021-04-22 17:40 | disposition home or self-care (01) | DRG 854 ==
LOC: ERS 11:25 → T4-A 16:24
PROVIDERS: ADMIT Internal Medicine; ATTEND Internal Medicine
PROC: 0KB80ZZ Excision of Left Upper Arm Muscle, Open Approach (ICD-10-PCS; principal; 2021-04-16)
PROC: 0HDCXZZ Extraction of Left Upper Arm Skin, External Approach (ICD-10-PCS; 2021-04-18)
PROC: 02HV33Z Insertion of Infusion Device into Superior Vena Cava, Percutaneous Approach (ICD-10-PCS; 2021-04-22)
PROC: B518ZZA Fluoroscopy of Superior Vena Cava, Guidance (ICD-10-PCS; 2021-04-22)
DX: A41.9 Sepsis, unspecified organism (principal); L03.114 Cellulitis of left upper limb; L02.414 Cutaneous abscess of left upper limb; M00.812 Arthritis due to other bacteria, left shoulder; M60.022 Infective myositis, left upper arm; F17.210 Nicotine dependence, cigarettes, uncomplicated; E11.65 Type 2 diabetes mellitus with hyperglycemia; E11.42 Type 2 diabetes mellitus with diabetic polyneuropathy; H40.9 Unspecified glaucoma; E78.5 Hyperlipidemia, unspecified; M60.9 Myositis, unspecified; E66.9 Obesity, unspecified; Z79.4 Long term (current) use of insulin; Z79.84 Long term (current) use of oral hypoglycemic drugs; Z79.82 Long term (current) use of aspirin; Z98.890 Other specified postprocedural states; Z79.899 Other long term (current) drug therapy; Z68.34 Body mass index [BMI] 34.0-34.9, adult
CPT/HCPCS: 36415; 36416; 36569; 80048; 80053; 80202; 83036; 83605; 85025; 87040; 87070; 87205; 94760; 96365; 96375; 96376; C1751; J0692; J0696; J1170; J1650; J1815; J1885; J1940; J2001; J2250; J2270; J2370; J2405; J2540; J2543; J2550; J2704; J3010; J3370; J3490; Q9967

== ENCOUNTER 2022-01-02 19:32 | Emergency (ER) | payer SELFPAY | END 2022-01-02 22:18 | disposition home or self-care (01) | LOC: ERS 19:32 | DX: N47.6 Balanoposthitis (principal); E11.9 Type 2 diabetes mellitus without complications; F17.210 Nicotine dependence, cigarettes, uncomplicated; Z79.4 Long term (current) use of insulin; Z79.82 Long term (current) use of aspirin | CPT/HCPCS: 36416; 99283 ==

== ENCOUNTER 2022-06-28 12:14 | Emergency (ER) | payer SELFPAY ==
[2022-06-28] MEDS ORDERED: Ketorolac Tromethamine 30 MG/ML VIAL ONE (14:54)
== END 2022-06-28 15:15 | disposition home or self-care (01) ==
LOC: ERS 12:14
DX: M79.602 Pain in left arm (principal); E11.9 Type 2 diabetes mellitus without complications; F17.210 Nicotine dependence, cigarettes, uncomplicated; Z79.82 Long term (current) use of aspirin; Z79.4 Long term (current) use of insulin; Z79.84 Long term (current) use of oral hypoglycemic drugs
CPT/HCPCS: 96372; 99283; J1885

== ENCOUNTER 2022-07-06 11:45 | Inpatient (IN) | payer SELFPAY ==
[2022-07-06 12:41] LABS: #Eosinphils 0.1 thou/uL (0.0-0.7); #Lymphocytes 1.8 thou/uL (1.20-3.40); #Monocytes 1.6 thou/uL (0.11-0.59); #Neutrophils 11.9 thou/uL (1.40-6.50); %Basophils 0.1 % (0.0-1.0); %Eosinophils 0.5 % (0.0-10.0); %Lymphocytes 11.5 % (21.0-51.0); %Monocytes 10.3 % (0.0-10.0); %Neutrophils 77.6 % (42.0-75.0); Mean Corpuscular HGB CONC 32.8 g/dL (32.0-36.0); Mean Corpuscular Hemoglobin 30.8 pg (27.0-31.0); Mean Corpuscular Volume 93.9 fl (78.0-98.0); Mean Platelet Volume 8.9 fL (7.4-10.4); Platelet Count 237 10x3/uL (130-400); RBC Distribution Width 12.1 % (11.5-14.5); Red Blood Cell (RBC) Count 4.53 mill/uL (4.70-6.10); White Blood Cell (WBC) Count 15.4 10x3/uL (4.8-10.8)
[2022-07-06] MEDS ORDERED: Cefepime 2 GM VIAL ONE (13:12)
[2022-07-06] MEDS ORDERED: Morphine 4 MG/ML VIAL ONE (13:14)
[2022-07-06 13:31] LABS: Bacteria/HPF 4+ HPF (None Seen); Bilirubin Negative (Negative); Blood, Urine Trace (Negative); Clarity Turbid (Clear); Glucose, Urine (Dipstick) Greater than 1000 mg/dL (Negative); Ketone, Urine 40 mg/dL (Negative); Leukocyte 500 Leu/uL (Negative); Nitrite Negative (Negative); Protein, Urine (Dipstick) 50 mg/dL (Neg-Trace); Specific Gravity, Urine 1.028 (1.002-1.036); Squamous Epithelial 0-3 HPF (0-3); Urobilinogen Normal mg/dL (Less than 2); WBC/HPF Greater than 50 HPF (0-3); pH, Urine 5.5 (5.0-9.0)
[2022-07-06 13:32] LABS: ALT (SGPT) 16 U/L (8-55); AST (SGOT) 10 U/L (5-34); Albumin 3.2 g/dL (3.5-5.0); Alkaline Phosphatase 76 U/L (40-110); Anion Gap 16 mmol/L (10-20); BUN (Urea Nitrogen) 19 mg/dL (8.9-20.6); Bilirubin, Total 0.4 mg/dL (0.2-1.2); Calc. Creatinine Clearance 0 mL/min (70-130); Calcium 9.3 mg/dL (7.8-10.44); Carbon Dioxide 24 mmol/L (22-29); Chloride 97 mmol/L (98-107); Estimated GFR 71; Globulin 3.8 g/dL (2.4-3.5); Potassium 4.5 mmol/L (3.5-5.1); Sodium 132 mmol/L (136-145)
[2022-07-06 13:59] LABS: Glucose 409 mg/dL (70-105)
[2022-07-06] MEDS ORDERED: VANCOMYCIN 2 GRAM/500 ML BAG 2 GM in Premix Bag 1 BAG IVPB SCH (14:00)
[2022-07-06] MEDS ORDERED: Acetaminophen 325 MG TAB PO PRN (14:10)
[2022-07-06] MEDS ORDERED: Senokot S 8.6-50 MG TAB PO PRN (14:10)
[2022-07-06] MEDS ORDERED: Guaifenesin DM 100-10/5 ML UDCUP PO PRN (14:10)
[2022-07-06] MEDS ORDERED: Ondansetron PF 4 MG/2 ML Vial IVP PRN (14:10)
[2022-07-06] MEDS ORDERED: Dextrose 50% Abboject 50 ML SYRINGE SLOW IVP PRN (14:17)
[2022-07-06] MEDS ORDERED: Dextrose 5% in Water 1,000 ML IV PRN (14:17)
[2022-07-06] MEDS ORDERED: Iopamidol-370 76% 500 ML 1 ML ONE (16:07)
[2022-07-06] MEDS ORDERED: Midazolam HCl 2 mg/2 ml Vial ONE (17:37)
[2022-07-06] MEDS ORDERED: Fentanyl 250 MCG/5 ML VIAL ONE (17:37)
[2022-07-06] MEDS ORDERED: Neomycin-Polymyxin 1 ML AMP ONE (17:42)
[2022-07-06] MEDS ORDERED: Ondansetron PF 4 MG/2 ML Vial ONE (18:01)
[2022-07-06] MEDS ORDERED: Lidocaine 1% PF 5 ML VIAL ONE (18:01)
[2022-07-06] MEDS ORDERED: PROPOFOL 200 MG/20 ML VIAL ONE (18:01)
[2022-07-06] MEDS ORDERED: Promethazine HCl 25 MG/ML VIAL IM PRN (18:53)
[2022-07-06] MEDS ORDERED: Promethazine HCl 25 MG/ML VIAL IVPB PRN (18:53)
[2022-07-06] MEDS ORDERED: Ondansetron HCl/PF 4 MG/2 ML Vial IVP PRN (18:53)
[2022-07-06] MEDS ORDERED: Fentanyl 100 MCG/2 ML VIAL ONE ×2 (19:01→19:37)
[2022-07-06] MEDS ORDERED: HumaLOG 300 UNITS/3 ML VIAL ONE (19:50)
[2022-07-06] MEDS: HumaLOG 300 UNITS/3 ML VIAL SC PRN (19:52)
[2022-07-06] MEDS: Sodium Chloride 0.9% 1,000 ML IV SCH ×2 (20:46→21:12)
[2022-07-06 20:50] VITALS: BMI 34.7
[2022-07-06] MEDS ORDERED: Vancomycin 1.5 GRAM/300 ML BAG IVPB SCH (21:00)
[2022-07-06] MEDS: HYDROcodone/Acetaminophen 10/325 mg Tablet PO PRN (21:14)
[2022-07-06 21:25] LABS: SARS-CoV-2 NAA Rapid Test Not Detected (NotDetected)
[2022-07-07] MEDS: Cefepime 2 GM in Sodium Chloride 0.9% 100 ML IVPB SCH ×3 (01:16→23:55)
[2022-07-07] MEDS: VANCOMYCIN 2 GRAM/500 ML BAG 2 GM in Premix Bag 1 BAG IVPB SCH ×2 (01:18→15:08)
[2022-07-07] MEDS: Sodium Chloride 0.9% 1,000 ML IV SCH (03:05)
[2022-07-07] MEDS: HumaLOG 300 UNITS/3 ML VIAL SC PRN ×2 (06:08→21:37)
[2022-07-07] MEDS: Insulin Glargine 30 UNITS/0.3 ML VIAL SC SCH (08:48)
[2022-07-07] MEDS: Enoxaparin Sodium 40 MG/0.4 ML SYRINGE SC SCH (08:48)
[2022-07-07 10:13] LABS: #Eosinphils 0.1 thou/uL (0.0-0.7); #Lymphocytes 1.4 thou/uL (1.20-3.40); #Monocytes 1.1 thou/uL (0.11-0.59); #Neutrophils 8.9 thou/uL (1.40-6.50); %Basophils 0.1 % (0.0-1.0); %Lymphocytes 11.8 % (21.0-51.0); %Monocytes 9.9 % (0.0-10.0); %Neutrophils 77.1 % (42.0-75.0); Hemoglobin 12.7 g/dL (14.0-18.0); Mean Corpuscular HGB CONC 31.9 g/dL (32.0-36.0); Mean Corpuscular Hemoglobin 30.5 pg (27.0-31.0); Mean Corpuscular Volume 95.7 fl (78.0-98.0); Mean Platelet Volume 8.5 fL (7.4-10.4); Platelet Count 220 10x3/uL (130-400); RBC Distribution Width 11.9 % (11.5-14.5); Red Blood Cell (RBC) Count 4.15 mill/uL (4.70-6.10); White Blood Cell (WBC) Count 11.5 10x3/uL (4.8-10.8)
[2022-07-07] MEDS: HYDROcodone/Acetaminophen 10/325 mg Tablet PO PRN ×2 (10:37→21:14)
[2022-07-07 10:40] LABS: Anion Gap 11 mmol/L (10-20); BUN (Urea Nitrogen) 8 mg/dL (8.9-20.6); Calc. Creatinine Clearance 267 mL/min (70-130); Calcium 7.5 mg/dL (7.8-10.44); Carbon Dioxide 23 mmol/L (22-29); Chloride 103 mmol/L (98-107); Estimated GFR 118; Glucose 254 mg/dL (70-105); Potassium 3.6 mmol/L (3.5-5.1); Sodium 133 mmol/L (136-145)
[2022-07-07 10:41] LABS: ALT (SGPT) 13 U/L (8-55); AST (SGOT) 12 U/L (5-34); Albumin 2.6 g/dL (3.5-5.0); Alkaline Phosphatase 66 U/L (40-110); Anion Gap 16 mmol/L (10-20); BUN (Urea Nitrogen) 9 mg/dL (8.9-20.6); Bilirubin, Total 0.3 mg/dL (0.2-1.2); Calc. Creatinine Clearance 277 mL/min (70-130); Calcium 7.7 mg/dL (7.8-10.44); Carbon Dioxide 19 mmol/L (22-29); Chloride 104 mmol/L (98-107); Estimated GFR 119; Globulin 3.2 g/dL (2.4-3.5); Glucose 253 mg/dL (70-105); Magnesium 1.7 mg/dL (1.6-2.6); Phosphorus 1.9 mg/dL (2.3-4.7); Potassium 3.8 mmol/L (3.5-5.1); Protein, Total 5.8 g/dL (6.0-8.3); Sodium 135 mmol/L (136-145)
[2022-07-08 01:44] LABS: Vancomycin, Trough 8.5 ug/mL
[2022-07-08] MEDS: VANCOMYCIN 2 GRAM/500 ML BAG 2 GM in Premix Bag 1 BAG IVPB SCH ×3 (01:48→10:33)
[2022-07-08] MEDS: HumaLOG 300 UNITS/3 ML VIAL SC PRN ×4 (05:26→20:28)
[2022-07-08] MEDS: Insulin Glargine 30 UNITS/0.3 ML VIAL SC SCH ×2 (08:39→20:27)
[2022-07-08] MEDS: Enoxaparin Sodium 40 MG/0.4 ML SYRINGE SC SCH (08:40)
[2022-07-08] MEDS: cefTRIAXone\\ROCEPHIN 2 GM in Sodium Chloride 0.9% 100 ML IVPB SCH (14:08)
[2022-07-08] MEDS ORDERED: metFORMIN 850 MG TAB PO SCH (19:15)
[2022-07-09] MEDS: HumaLOG 300 UNITS/3 ML VIAL SC PRN ×2 (05:17→11:55)
[2022-07-09] MEDS: Enoxaparin Sodium 40 MG/0.4 ML SYRINGE SC SCH (08:44)
[2022-07-09] MEDS: glipiZIDE 10 MG TAB PO SCH (08:44)
[2022-07-09] MEDS: metFORMIN 850 MG TAB PO SCH ×3 (08:44→16:20)
[2022-07-09] MEDS: Insulin Glargine 30 UNITS/0.3 ML VIAL SC SCH ×2 (08:45→21:02)
[2022-07-09] MEDS: Lisinopril 5 MG TAB PO SCH (08:45)
[2022-07-09] MEDS: cefTRIAXone\\ROCEPHIN 2 GM in Sodium Chloride 0.9% 100 ML IVPB SCH (11:55)
[2022-07-09] MEDS: HYDROcodone/Acetaminophen 10/325 mg Tablet PO PRN (16:19)
[2022-07-09] MEDS ORDERED: Morphine 2 MG/ML VIAL SLOW IVP PRN (17:38)
[2022-07-09] MEDS ORDERED: Lidocaine 4% Topical Sol 50 ML BOT TOP PRN (17:38)
[2022-07-10] MEDS: HumaLOG 300 UNITS/3 ML VIAL SC PRN ×2 (05:43→19:54)
[2022-07-10] MEDS: metFORMIN 850 MG TAB PO SCH ×3 (09:08→16:23)
[2022-07-10] MEDS: glipiZIDE 10 MG TAB PO SCH (09:09)
[2022-07-10] MEDS: Enoxaparin Sodium 40 MG/0.4 ML SYRINGE SC SCH (09:09)
[2022-07-10] MEDS: Insulin Glargine 30 UNITS/0.3 ML VIAL SC SCH ×2 (09:09→19:54)
[2022-07-10] MEDS: Lisinopril 5 MG TAB PO SCH (09:09)
[2022-07-10] MEDS: HYDROcodone/Acetaminophen 10/325 mg Tablet PO PRN (10:07)
[2022-07-10] MEDS ORDERED: Morphine 4 MG/ML VIAL SLOW IVP PRN (11:00)
[2022-07-10] MEDS: cefTRIAXone\\ROCEPHIN 2 GM in Sodium Chloride 0.9% 100 ML IVPB SCH (11:05)
[2022-07-11] MEDS: Insulin Glargine 30 UNITS/0.3 ML VIAL SC SCH ×2 (09:37→21:07)
[2022-07-11] MEDS: Lisinopril 5 MG TAB PO SCH (09:37)
[2022-07-11] MEDS: glipiZIDE 10 MG TAB PO SCH (09:37)
[2022-07-11] MEDS: metFORMIN 850 MG TAB PO SCH ×3 (09:37→18:22)
[2022-07-11] MEDS: Enoxaparin Sodium 40 MG/0.4 ML SYRINGE SC SCH (09:38)
[2022-07-11] MEDS: HumaLOG 300 UNITS/3 ML VIAL SC PRN ×2 (12:14→21:09)
[2022-07-11] MEDS: cefTRIAXone\\ROCEPHIN 2 GM in Sodium Chloride 0.9% 100 ML IVPB SCH (12:15)
[2022-07-11 17:04] LABS: #Eosinphils 0.2 thou/uL (0.0-0.7); #Lymphocytes 1.7 thou/uL (1.20-3.40); #Monocytes 1.1 thou/uL (0.11-0.59); #Neutrophils 6.3 thou/uL (1.40-6.50); %Basophils 0.3 % (0.0-1.0); %Eosinophils 2.1 % (0.0-10.0); %Lymphocytes 18.7 % (21.0-51.0); %Monocytes 11.8 % (0.0-10.0); %Neutrophils 67.2 % (42.0-75.0); Hemoglobin 14.4 g/dL (14.0-18.0); Mean Corpuscular HGB CONC 32.6 g/dL (32.0-36.0); Mean Corpuscular Hemoglobin 30.9 pg (27.0-31.0); Mean Corpuscular Volume 94.7 fl (78.0-98.0); Mean Platelet Volume 10.4 fL (7.4-10.4); Platelet Count 230 10x3/uL (130-400); RBC Distribution Width 12.4 % (11.5-14.5); Red Blood Cell (RBC) Count 4.67 mill/uL (4.70-6.10); White Blood Cell (WBC) Count 9.3 10x3/uL (4.8-10.8)
[2022-07-11 19:43] LABS: Calcium 9.3 mg/dL (7.8-10.44); Chloride 98 mmol/L (98-107); Potassium 4.5 mmol/L (3.5-5.1); Sodium 135 mmol/L (136-145)
[2022-07-11 19:44] LABS: Glucose 239 mg/dL (70-105)
[2022-07-11 19:45] LABS: Anion Gap 14 mmol/L (10-20); Carbon Dioxide 28 mmol/L (22-29)
[2022-07-11 19:47] LABS: Calc. Creatinine Clearance 216 mL/min (70-130); Estimated GFR 111
[2022-07-11 19:48] LABS: BUN (Urea Nitrogen) 16 mg/dL (8.9-20.6)
[2022-07-12] MEDS: metFORMIN 850 MG TAB PO SCH ×3 (08:52→18:05)
[2022-07-12] MEDS: Insulin Glargine 30 UNITS/0.3 ML VIAL SC SCH ×2 (08:52→20:52)
[2022-07-12] MEDS: glipiZIDE 10 MG TAB PO SCH (08:53)
[2022-07-12] MEDS: Enoxaparin Sodium 40 MG/0.4 ML SYRINGE SC SCH (08:53)
[2022-07-12] MEDS: Lisinopril 5 MG TAB PO SCH (08:53)
[2022-07-12] MEDS: cefTRIAXone\\ROCEPHIN 2 GM in Sodium Chloride 0.9% 100 ML IVPB SCH (11:19)
[2022-07-12] MEDS: HumaLOG 300 UNITS/3 ML VIAL SC PRN (11:25)
[2022-07-12 17:52] LABS: Anion Gap 14 mmol/L (10-20); BUN (Urea Nitrogen) 15 mg/dL (8.9-20.6); Calc. Creatinine Clearance 246 mL/min (70-130); Calcium 9.3 mg/dL (7.8-10.44); Carbon Dioxide 23 mmol/L (22-29); Chloride 102 mmol/L (98-107); Estimated GFR 115; Glucose 108 mg/dL (70-105); Potassium 4.4 mmol/L (3.5-5.1); Sodium 135 mmol/L (136-145)
[2022-07-12 17:54] LABS: #Eosinphils 0.2 thou/uL (0.0-0.7); #Lymphocytes 2.3 thou/uL (1.20-3.40); #Monocytes 1.4 thou/uL (0.11-0.59); #Neutrophils 6.6 thou/uL (1.40-6.50); %Basophils 0.1 % (0.0-1.0); %Eosinophils 2.3 % (0.0-10.0); %Lymphocytes 22.2 % (21.0-51.0); %Neutrophils 62.4 % (42.0-75.0); Hemoglobin 14.1 g/dL (14.0-18.0); Mean Corpuscular HGB CONC 33.3 g/dL (32.0-36.0); Mean Corpuscular Volume 93.1 fl (78.0-98.0); Mean Platelet Volume 8.4 fL (7.4-10.4); Platelet Count 254 10x3/uL (130-400); RBC Distribution Width 12.3 % (11.5-14.5); Red Blood Cell (RBC) Count 4.55 mill/uL (4.70-6.10); White Blood Cell (WBC) Count 10.5 10x3/uL (4.8-10.8)
[2022-07-13] MEDS: metFORMIN 850 MG TAB PO SCH ×3 (09:13→16:28)
[2022-07-13] MEDS: Insulin Glargine 30 UNITS/0.3 ML VIAL SC SCH ×2 (09:13→20:36)
[2022-07-13] MEDS: Lisinopril 5 MG TAB PO SCH (09:13)
[2022-07-13] MEDS: glipiZIDE 10 MG TAB PO SCH (09:13)
[2022-07-13] MEDS: Enoxaparin Sodium 40 MG/0.4 ML SYRINGE SC SCH (09:14)
[2022-07-13] MEDS: cefTRIAXone\\ROCEPHIN 2 GM in Sodium Chloride 0.9% 100 ML IVPB SCH (11:40)
[2022-07-13] MEDS: Cephalexin 250 MG CAP PO SCH ×2 (16:28→20:34)
[2022-07-13] MEDS ORDERED: Cephalexin 250 MG CAP PO SCH (18:00)
[2022-07-13 20:39] VITALS: TEMP 97.6
[2022-07-14 08:45] VITALS: BP 120/78
[2022-07-14] MEDS: Enoxaparin Sodium 40 MG/0.4 ML SYRINGE SC SCH (08:53)
[2022-07-14] MEDS: Lisinopril 5 MG TAB PO SCH (08:53)
[2022-07-14] MEDS: glipiZIDE 10 MG TAB PO SCH (08:53)
[2022-07-14] MEDS: Cephalexin 250 MG CAP PO SCH ×2 (08:54→12:07)
[2022-07-14] MEDS: metFORMIN 850 MG TAB PO SCH ×2 (08:54→11:52)
[2022-07-14] MEDS: Insulin Glargine 30 UNITS/0.3 ML VIAL SC SCH (08:54)
[2022-07-14] MEDS: HYDROcodone/Acetaminophen 10/325 mg Tablet PO PRN (14:13)
== END 2022-07-14 16:05 | disposition home or self-care (01) | DRG 854 ==
LOC: ERS 11:45 → ERHOLD 14:04 → SURG A 15:43 → T4-B 21:01
PROVIDERS: ADMIT Hospitalist; ATTEND Internal Medicine
PROC: 0K980ZZ Drainage of Left Upper Arm Muscle, Open Approach (ICD-10-PCS; principal; 2022-07-06)
DX: A40.1 Sepsis due to streptococcus, group B (principal); L02.414 Cutaneous abscess of left upper limb; L03.114 Cellulitis of left upper limb; M60.022 Infective myositis, left upper arm; N39.0 Urinary tract infection, site not specified; Z20.822 Contact with and (suspected) exposure to COVID-19; I10 Essential (primary) hypertension; E78.5 Hyperlipidemia, unspecified; E66.01 Morbid (severe) obesity due to excess calories; F17.210 Nicotine dependence, cigarettes, uncomplicated; M60.9 Myositis, unspecified; E11.65 Type 2 diabetes mellitus with hyperglycemia; Z79.82 Long term (current) use of aspirin; Z79.84 Long term (current) use of oral hypoglycemic drugs; Z79.4 Long term (current) use of insulin; Z79.899 Other long term (current) drug therapy; Z91.14 Patient's other noncompliance with medication regimen; Z68.34 Body mass index [BMI] 34.0-34.9, adult
CPT/HCPCS: 36415; 36416; 80048; 80053; 80202; 81003; 81015; 83605; 83735; 84100; 84484; 85025; 85652; 86140; 87040; 87070; 87077; 87086; 87205; 87811; 93005; 96365; 96366; 96367; 96375; 97139; J0692; J0696; J1650; J1815; J2250; J2270; J2405; J2704; J3010; J3370; J3490; J7030; J7050; Q9967; U0002

== ENCOUNTER → 2022-07-15 | Emergency (ER) | payer SELFPAY | LOC: ERS 05:26 | DX: Z53.21 Procedure and treatment not carried out due to patient leaving prior to being seen by health care provider (principal) ==